=== PATIENT | male | born 1975 | race Two or more races ===

== ENCOUNTER 2024-07-17 12:37 | Emergency (ER) | payer OTHER ==
[~2024-07-17] VITALS: Ht 188 cm; Wt 173.8 kg
[2024-07-17] MEDS: HYDROcodone-ACET 10/325MG TAB PO ONE (13:29)
--- NOTE | 2024-07-17 14:03 | DVH ---
X-ray right shoulder Technique: AP and lateral views REASON FOR EXAM: INJURY R/O FX INDICATION: INJURY R/O FX FINDINGS: Anterior dislocation of the humeral head. No fractures or IMPRESSION: 1. Anterior dislocation of the shoulder joint
[2024-07-17 15:42] VITALS: TEMP 98.2
--- NOTE | 2024-07-17 17:34 | ED.PDOC ---
Musculoskeletal HPI Comments 49-year-old with no pertinent MHx presents for a possible dislocation to the right shoulder x1 day. Onset occurred after patient fell at work. Reports he missed a step when he was walking from the cat walk to his trailer. Upon falling patient felt sudden pain to the right proximal humeral head and limited range of motion.. Never had these symptoms before and denies any other associated symptoms. Denies fevers chills night sweats nausea vomiting redness around the shoulder Denies previous surgeries to the shoulder or significant injury Numbness/tingling down the arm Denies changes, shortness of breath Chief Complaint: Upper Extremity Time Seen by MD: 14:49 Primary Care Provider: HARI Reviewed Notes: Nurses Notes, Medications, Allergies Allergies: Coded Allergies: NO KNOWN ALLERGIES (Unverified , 07/17/24) Home Meds Active Scripts Ibuprofen (Ibuprofen) 800 Mg Tab, 800 MG PO Q8HP PRN, #30 TAB prn pain, take with food Prov:YOANDY HART MD 07/18/24 Acetaminophen (Tylenol Extra Strength) 500 Mg Tab, 1000 MG PO Q6HP PRN, #30 TAB prn pain Prov:YOANDY HART MD 07/18/24 Information Source: Patient Mode of Arrival: Ambulatory All Other Systems: Reviewed and Negative (Per HPI) Physical Exam General Appearance: No Apparent Distress, Normal HEENT: Normal ENT Inspection, Pharynx Normal, TMs Normal Neck: Full Range of Motion, Non-Tender, Normal, Normal Inspection Respiratory: Chest Non-Tender, Lungs Clear, No Accessory Muscle Use, No Respiratory Distress, Normal Breath Sounds Cardiovascular: No Edema, No JVD, No Murmur, No Gallop, Normal Peripheral Pulses, Regular Rate/Rhythm Breast Exam: Deferred Gastrointestinal: No Organomegaly, Non Tender, No Pulsatile Mass, Normal Bowel Sounds, Soft Genitalia: Deferred Pelvic: Deferred Rectal: Deferred Extremities: No calf tenderness, Normal capillary refill, Normal inspection, Normal range of motion, Non-tender, No pedal edema Musculoskeletal : Location: Right Extremity Location: Shoulder (Shoulder legs anteriorly dislocated. Visible shoulder drop. Clavicular tenderness on palpation. Palpation tenderness to coracoid process and acromion process. No scapular, supraspinatus, infraspinatus tenderness to touch. Limited flexion passive movement due to pain. 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 Was a procedure done?: Yes Sedation Sedation?: Yes Informed consent obtained: Yes Sedation start time: 23:23 Sedation end time: 23:30 Sedation total time: 7 min Sedation provider statement: Pt sedated using IV ketamine 170mg. On re-evaluation after procedure. Patient is alert, oriented, right upper extremities neurovascularly intact, vitals are stable. Moderate/Procedural Sedation Indication: Procedure (Closed reduction of right glenohumeral joint dislocation) Assessment: History and Physical ASA score: ASA Status, 1 Procedure: Audio Video Repairer, Pulse Oximetry, Oxygen Saturation, Medications administered Sedation Start Time 2323 Sedation End Time 2330 Time spent for Sedation 7 min Complications: None Risks/benefits/alt described: Yes Reduction Indication: Dislocation Sedation: Consents obtained, Sedation as ordered Intra-articular anesthetic david: No Post-reduction x-ray show: Reduction, Good Alignment Informed consent obtained: Yes Risks/benefits/alt described: Yes Notes The right glenohumeral joint dislocation was reduced using inferior traction with counter traction and external rotation. Other Procedure Procedure Right upper extremity shoulder immobilizer splint application Informed consent obtained: Yes Notes Right upper extremity shoulder immobilizer splint was applied. The right upper extremity was neurovascularly intact after splint application. Differential Diagnosis EXT Differential Diagnosis: Sprain, Dislocation X-Ray, Labs, Meds, VS Vital Signs Date Time Temp Pulse Resp B/P (MAP) Pulse Ox O2 Delivery O2 Flow Rate FiO2 07/17/24 23:20 73 26 97 4.0 36 91 30 96 107 94 07/17/24 22:08 76 16 164/101 07/17/24 22:07 79 07/17/24 21:38 76 12 169/112 07/17/24 20:00 75 14 187/118 (141) 93 07/17/24 19:30 Room Air* 0 21 07/17/24 18:38 73 07/17/24 15:42 98.2 76 19 173/20 (70) 94 98.2 07/17/24 15:42 76 19 94 Room Air 07/17/24 13:00 98.2 76 18 176/114 (134) 94 Current Medications Medications (Trade) Dose Ordered Sig/Sendy Route Start Time Stop Time Status Last Admin Acetaminophen/ Hydrocodone Bitart ([place]a 10/325MG Tab) 1 tab ONCE ONCE PO 07/17/24 13:30 07/17/24 13:31 DC 07/17/24 13:29 Morphine Sulfate 4 mg ONCE ONCE IV 07/17/24 20:45 07/17/24 21:22 DC 07/17/24 21:38 Ondansetron HCl (Zofran) 4 mg ONCE ONCE IV 07/17/24 20:45 07/17/24 21:22 DC 07/17/24 21:39 Lorazepam (Ativan Inj) 1 mg ONCE ONCE IV 07/17/24 20:45 07/17/24 21:22 DC 07/17/24 21:39 Ketamine HCl (Ketalar) 170 mg ONCE ONCE IV 07/17/24 23:00 07/17/24 23:01 DC 07/17/24 23:23 X-Ray, Labs, Meds, VS Comment This is a 49-year-old female with no pertinent MHx that presents for a possible dislocation to the right shoulder. Imaging ordered and findings show anterior dislocation. Reduction was unsuccessful in [employer]. Attempted Jaswinder technique. Case was relayed to Dr. Es Kurtz and patient will be moved to the main ER for conscious sedation and reduction. Patient is stable at this time Patient endorsed to MD at 17: [address] Es Kurtz: Patient endorsed to me to complete reduction of right glenohumeral joint disl ocation. Patient received the following medications ordered by me: Morphine 4 mg IV, Zofran 4 mg IV, Ativan 1 mg IV, ketamine 170 mg IV. Please see procedure note for details. A right upper extremity shoulder immobilizer splint was applied. The right upp er extremity was neurovascularly intact after the splint was applied. Postreduction one view right shoulder x-ray: Preliminarily interpreted by me. Adequate alignment of glenohumeral joint. No acute fracture appreciated. On re-evaluation , patient states pain has improved. Vitals are stable. Patient appears stable for discharge with close outpatient follow-up with his primary physician for referral to an orthopedist. Rx Tylenol, ibuprofen PROCEDURE(s): RSHD2 - R SHOULDER 2+ VIEW XRAY REASON: Postreduction ORDER NUMBER(s): [id number], ACCESSION NUMBER(s): [id number] CLINICAL INFORMATION: 49 years old, Male; Postreduction. TECHNIQUE: 3 views of the right shoulder were obtained. COMPARISON: XY R SHOULDER 2+ VIEW XRAY on DOS: 07/17/24 FINDINGS: No acute fracture or dislocation. No significant arthropathy. Overlying soft tissues are grossly unremarkable. IMPRESSION: No evidence of acute bony abnormality. Time of 1ST Reevaluation: 17:31 Reevaluation 1ST: Unchanged Time of 2ND Reevaluation: 00:05 Reevaluation 2ND: Improved Patient Education/Counseling: Diagnosis, Treatment Family Education/Counseling: Diagnosis, Treatment Departure 1 Departure Time of Disposition: 17:33 Impression: Primary Impression: Anterior shoulder dislocation Qualified Codes: S43.014A - Anterior dislocation of right humerus, initial encounter Disposition: HOME / SELF CARE / HOMELESS Condition: Stable Referrals: MACK SANCHEZ MD Additional Instructions: I have prescribed pain medications. Follow-up with your primary doctor in 1-2 days for referral to an orthopedist for further evaluation. Alternatively, follow-up with Dr. Sanchez. e-Prescriptions Ibuprofen (Ibuprofen) 800 Mg Tab 800 MG PO Q8HP PRN, #30 TAB prn pain, take with food Prov: YOANDY HART MD 07/18/24 Acetaminophen (Tylenol Extra Strength) 500 Mg Tab 1000 MG PO Q6HP PRN, #30 TAB prn pain Prov: YOANDY HART MD 07/18/24 Discharged With: Relative Comments Off work until cleared by primary physician or orthopedist. Critical Care Note Critical Care Time?: No Stability Stability form required: No Heart Score Heart Score: Heart Score Response (Comments) Value History N/A 0 EKG N/A 0 Age N/A 0 Risk Factors N/A 0 Troponin N/A 0 Total 0 LBU WILLETT NP Jul 17, 2024 17:34 YOANDY HART MD Jul 18, 2024 00:15
[2024-07-17] MEDS: MORPHINE SULFATE 4 MG/ML SYR/VIAL IV ONE (21:38)
[2024-07-17] MEDS: LORazepam 2MG/ML-1ML VIAL IV ONE (21:39)
[2024-07-17] MEDS: ONDANSETRON HCL 4 MG/2 ML VIAL IV ONE (21:39)
[2024-07-17] MEDS: KETAMINE 50mg/ML 10ml Vial (500mg/10ml) IV ONE (23:23)
--- NOTE | 2024-07-18 00:11 | DVH ---
CLINICAL INFORMATION: 49 years old, Male; Postreduction. TECHNIQUE: 3 views of the right shoulder were obtained. COMPARISON: XY R SHOULDER 2+ VIEW XRAY on DOS: 07/17/24 FINDINGS: No acute fracture or dislocation. No significant arthropathy. Overlying soft tissues are g rossly unremarkable. IMPRESSION: No evidence of acute bony abnormality.
[2024-07-18] MEDS ORDERED: IBUP-1456 PO (00:14)
[2024-07-18] MEDS ORDERED: ACET-1304 PO (00:14)
[2024-07-18 01:25] VITALS: BP 155/98; PULSE 83; RESP 16; O2SAT 96
== END 2024-07-18 01:42 | disposition home or self-care (01) ==
LOC: ER 12:37
DX: S43.084A Other dislocation of right shoulder joint, initial encounter (principal); X58.XXXA Exposure to other specified factors, initial encounter; Y93.89 Activity, other specified; Y92.89 Other specified places as the place of occurrence of the external cause; Y99.8 Other external cause status
CPT/HCPCS: 23650; 73030; 96374; 96375; 99285; J2060; J2270; J2405